=== PATIENT | female | born 1980 | race Caucasian/White ===

== ENCOUNTER 2017-10-28 00:37 | Emergency (ER) | payer MEDICARE, MEDICAID ==
[2017-10-28] MEDS ORDERED: guaiFENesin/CODIEN 100MG-10MG* 5 ML UDC PO ONE (03:17)
--- NOTE | 2017-10-28 03:25 | ED ---
Paulo Stevens Thomas, scribed for Sergo Thibodeaux MD on 10/28/17 at 0311 . Respiratory - HPI Summary HPI Summary: The patient is a 37 year old female presenting with a dry cough for the last two weeks. She has been taking doxycycline and finished her course yesterday. She has also been taking Flovent and albuterol to no improvement. Patient additionally complains of postnasal drip. - History of Current Complaint Chief Complaint: EDUpperRespComplaint Stated Complaint: SOB,COUGH,WHEEZING Time Seen by Provider: 10/28/17 03:00 Hx Obtained From: Patient Onset/Duration: Lasting Weeks - 2, Still Present Timing: Intermittent Episodes Lasting: Initial Severity: Moderate Current Severity: Moderate Pain Intensity: 0 Character: Cough (Nonproductive) Sputum Amount: None Aggravating Factor(s): Nothing Alleviating Factor(s): Nothing Associated Signs and Symptoms: Negative - fever - Allergy/Home Medications Allergies/Adverse Reactions: Allergies Allergy/AdvReac Type Severity Reaction Status Date / Time No Known Allergies Allergy Verified 10/28/17 00:46 PMH/Surg Hx/FS Hx/Imm Hx Sensory History: Denies: Hx Legally Blind EENT History: Denies: Hx Deafness Infectious Disease History: No Infectious Disease History: Denies: Traveled Outside the [place] in Last 30 Days - Family History Known Family History: Positive: Other - Patient denies relevant FHx - Social History Alcohol Use: None Hx Substance Use: No Substance Use Type: Reports: None Hx Tobacco Use: No Smoking Status (MU): Never Smoked Tobacco Review of Systems Negative: Fever Positive: Other - Postnasal drip Positive: Cough All Other Systems Reviewed And Are Negative: Yes Physical Exam - Summary Physical Exam Summary: General: well-appearing, no pain distress Skin: warm, color reflects adequate perfusion, dry Head: normal Eyes: EOMI, AMBER ENT: Positive rhinorrhea. Neck: supple, nontender Respiratory: CTA, breath sounds present Cardiovascular: RRR Abdomen: soft, nontender Bowel: present Musculoskeletal: normal, strength/ROM intact Neurological: normal, sensory/motor intact, A&O x3 Psychological: affect/mood appropriate Triage Information Reviewed: Yes Vital Signs On Initial Exam: Initial Vitals Temp Pulse Resp BP Pulse Ox 99.0 F 89 18 136/87 98 10/28/17 00:44 10/28/17 00:44 10/28/17 00:44 10/28/17 00:44 10/28/17 00:44 Vital Signs Reviewed: Yes Diagnostics - Vital Signs Vital Signs Temp Pulse Resp BP Pulse Ox 10/28/17 00:44 99.0 F 89 18 136/87 98 - Laboratory Lab Statement: Any lab studies that have been ordered have been reviewed, and results considered in the medical decision making process. Disposition - Course Course Of Treatment: Medications reviewed. BP noted and patient urged primary care follow-up. IMPROVED IN ED. WISHES TO GO HOME. F/U PMD; RETURN IF WORSE. - Diagnoses Provider Diagnoses: Elevated BP without diagnosis of hypertension, Bronchitis, Cough Discharge - Discharge Plan Condition: Stable Disposition: HOME Prescriptions: guaiFENesin/CODIEN 100MG-10MG* [Robitussin AC 100Mg-10Mg*] 10 ml PO Q4H PRN # 180 ml MDD 60 PRN Reason: Cough Patient Education Materials: Acute Bronchitis (ED) Referrals: [facility] [Outside] Non Staff,Doctor [Primary Care Provider] - Additional Instructions: FOLLOW UP WITH YOUR DOCTOR. RETURN TO THE EMERGENCY DEPARTMENT FOR ANY WORSENING OF YOUR CONDITION OR QUESTIONS OR CONCERNS. The documentation as recorded by the Paulo bradley Thomas accurately reflects the service I personally performed and the decisions made by me, Sergo Thibodeaux MD.
[2017-10-28 03:45] VITALS: BP 116/66
== END 2017-10-28 03:45 | disposition home or self-care (01) ==
LOC: ED 00:37
DX: R03.0 Elevated blood-pressure reading, without diagnosis of hypertension (principal); R06.02 Shortness of breath; R05 Cough; R06.2 Wheezing; J40 Bronchitis, not specified as acute or chronic
CPT/HCPCS: 99283; A9270-GY

== ENCOUNTER 2018-08-05 20:50 | Emergency (ER) | payer MEDICARE, MEDICAID ==
[2018-08-05] MEDS ORDERED: Acetaminophen TAB* 325 MG PO ONE (23:11)
[2018-08-05] MEDS ORDERED: predniSONE TAB* 20 MG PO ONE (23:11)
[2018-08-05] MEDS ORDERED: Albuterol/Ipratropium NEB.SOL* Albuterol 2.5 MG/Ipratropium 0.5 MG 3 ML INH ONE (23:12)
--- NOTE | 2018-08-05 23:15 | ED ---
Shortness of Breath - HPI Summary HPI Summary: This patient is a 38 year old F presenting to [facility] with a chief complaint of SOB that began yesterday night. The patient rates the pain 7/10 in severity. Symptoms aggravated by nothing. Symptoms alleviated by nothing. Patient reports diaphoresis. Patient denies sore throat. Patient reports a history of asthma. - History of Current Complaint Chief Complaint: EDShortnessOfBreath Time Seen by Provider: 08/05/18 22:55 Hx Obtained From: Patient Onset/Duration: Sudden Onset, Lasting Days, Still Present Timing: Constant Current Severity: Moderate Dyspnea At: Rest Aggrevating Factors: Nothing Alleviating Factors: Nothing Associated Signs & Symptoms: Diaphoresis - Allergy/Home Medications Allergies/Adverse Reactions: Allergies Allergy/AdvReac Type Severity Reaction Status Date / Time No Known Allergies Allergy Verified 10/28/17 00:46 Home Medications: Home Medications Albuterol HFA INHALER* [Ventolin HFA Inhaler*] 1 puff INH Q4H PRN 08/05/18 [ History Confirmed 08/05/18] Dextroamphetamine/Amphetamine [Dextroamp-Amphetamin 20 mg Tab] 20 mg PO BID 06/14 [History Confirmed 08/05/18] Diazepam TAB(*) [Valium TAB(*)] 10 mg PO Q8H PRN 08/05/18 [History Confirmed 06/14] Venlafaxine HCl [Venlafaxine HCl ER] 2 tab PO DAILY 08/05/18 [History Confirmed 08/05/18] buPROPion HCl [Wellbutrin Sr] 200 mg PO BID 08/05/18 [History Confirmed 08/05/18 ] PMH/Surg Hx/FS Hx/Imm Hx Previously Healthy: No Respiratory History: Reports: Hx Asthma Sensory History: Denies: Hx Legally Blind, Hx Deafness Opthamlomology History: Denies: Hx Legally Blind Infectious Disease History: No Infectious Disease History: Denies: Traveled Outside the [place] in Last 30 Days - Family History Known Family History: Positive: None, Other - Patient denies relevant FHx - Social History Occupation: Unemployed Lives: Alone Alcohol Use: None Hx Substance Use: No Substance Use Type: Reports: None Hx Tobacco Use: No Smoking Status (MU): Never Smoked Tobacco Review of Systems Positive: Skin Diaphoresis Negative: Sore Throat Positive: Shortness Of Breath All Other Systems Reviewed And Are Negative: Yes Physical Exam - Summary Physical Exam Summary: VITAL SIGNS: Reviewed. GENERAL: Patient is a well-developed and nourished female who is lying comfortable in the stretcher. Patient is not in any acute respiratory distress. HEAD AND FACE: No signs of trauma. No ecchymosis, hematomas or skull depressions. No sinus tenderness. EYES: PERRLA, EOMI x 2, No injected conjunctiva, no nystagmus. EARS: Hearing grossly intact. Ear canals and tympanic membranes are within normal limits. MOUTH: Oropharynx within normal limits. NECK: Supple, trachea is midline, no adenopathy, no JVD, no carotid bruit, no c- spine tenderness, neck with full ROM. CHEST: Symmetric, no tenderness at palpation LUNGS: Clear to auscultation bilaterally. Bilateral wheezes CVS: Regular rate and rhythm, S1 and S2 present, no murmurs or gallops appreciated. ABDOMEN: Soft, non-tender. No signs of distention. No rebound no guarding, and no masses palpated. Bowel sounds are normal. EXTREMITIES: FROM in all major joints, no edema, no cyanosis or clubbing. NEURO: Alert and oriented x 3. No acute neurological deficits. Speech is normal and follows commands. SKIN: Dry and warm Triage Information Reviewed: Yes Vital Signs On Initial Exam: Initial Vitals Temp Pulse Resp BP Pulse Ox 98.2 F 87 20 143/88 98 08/05/18 20:59 08/05/18 20:59 08/05/18 20:59 08/05/18 20:59 08/05/18 20:59 Vital Signs Reviewed: Yes Diagnostics - Vital Signs Vital Signs Temp Pulse Resp BP Pulse Ox 08/05/18 20:59 98.2 F 87 20 143/88 98 - Laboratory Lab Statement: Any lab studies that have been ordered have been reviewed, and results considered in the medical decision making process. - Radiology Chest XR Radiology Interpretation Completed By: ED Physician Summary of Radiographic Findings: CXR reveals, per ED physician, no acute process. Re-Evaluation - Re-Evaluation First Eval Re-Evaluation Time: 00:36 Change: Improved Comment: Lungs are clear. Patient cannot take prednisone because it "messes up her emotions". Course/Dx - Course Course Of Treatment: This patient is a 38 year old F presenting to [facility] with a chief complaint of SOB that began yesterday night. The patient rates the pain 7/ 10 in severity. Physical Exam Findings: Bilateral wheezes. CXR reveals, per ED physician, no acute process. In the ED course the patient was given Acetaminophen, Albuterol, duoneb, and Deltasone. Patient will be discharged with prescription for Advair and with follow up from PCP. The patient is agreeable with this plan. - Diagnoses Provider Diagnoses: Asthma Discharge - Sign-Out/Discharge Documenting (check all that apply): Patient Departure - Discharge home - Discharge Plan Condition: Stable Disposition: HOME Prescriptions: Fluticasone-Salmeterol 250-50* [Advair Diskus 250-50*] 1 puff INH BID #1 diskus Patient Education Materials: Asthma (ED) Referrals: [facility] [place]] - 3 Days Additional Instructions: RETURN TO THE EMERGENCY DEPARTMENT FOR NEW OR WORSENING SYMPTOMS - Attestation Statements Document Initiated by Scribe: Yes Documenting Scribe: Yessica Mcgrath Provider For Whom Scribe is Documenting (Include Credential): Dr. Cain Condon MD Scribe Attestation: Yessica Stevens, scribed for Dr. Cain Condon MD on 08/06/18 at 0045.
[2018-08-05] MEDS ORDERED: Albuterol 2.5 MG/3 ML NEB.SOL* (0.083%) INH SCH (23:45)
[2018-08-06] MEDS ORDERED: Albuterol 2.5 MG/3 ML NEB.SOL* (0.083%) INH ONE (00:07)
[2018-08-06 00:50] VITALS: BP 128/69
== END 2018-08-06 00:50 | disposition home or self-care (01) ==
LOC: ED 20:50
DX: J45.909 Unspecified asthma, uncomplicated (principal); R06.02 Shortness of breath
CPT/HCPCS: 71045; 87651; 99283; A9270-GY; J7512